=== PATIENT | female | born 1955 | race Caucasian/White ===

== ENCOUNTER → 2016-07-04 | Outpatient (CLI) | payer BC ==
[~2016-07-04] MED LIST: ALLEGRA 60MG TA60 MG PO; ALREX 5 ML5 ML OP; CALCIUM 600600 MG; CARAFATE 1GM1 G PO; CLARITIN 1010 MG/TAB; DUO-KAPS1 CAP; DYRENIUM 50MG C50 MG; GLUCOSAMINE & C1 CA1; NASONEX SPRAY17 GM NS; NEXIUM 40MG40 MG PO; PREDNISONE10 MG PO; PRILOSEC10 MG; RESTASIS0.05% OP; XALATAN EYE DROPS OD; ZADITOR 5 ML5 ML OP
== END ==
LOC: MC.RAD 07:58
DX: Z12.31 Encounter for screening mammogram for malignant neoplasm of breast (principal)

== ENCOUNTER → 2017-08-17 | Outpatient (CLI) | payer BC | LOC: MC.RAD 07:27 | DX: Z12.31 Encounter for screening mammogram for malignant neoplasm of breast (principal) ==

== ENCOUNTER → 2018-08-18 | Outpatient (CLI) | payer BC | LOC: MC.RAD 07:28 | DX: Z12.31 Encounter for screening mammogram for malignant neoplasm of breast (principal) ==

== ENCOUNTER → 2019-08-23 | Outpatient (CLI) | payer BC | LOC: MC.RAD 10:12 | DX: Z12.31 Encounter for screening mammogram for malignant neoplasm of breast (principal) ==

== ENCOUNTER 2019-10-31 15:08 | Outpatient (CLI) | payer BC ==
[~2019-10-31] VITALS: Ht 160 cm; Wt 56.1 kg
[2019-10-31] MEDS ORDERED: AMPHOJEL SUSPENS1 ML PO (15:37)
[2019-10-31] MEDS ORDERED: MILK OF MA400 MG/52 (15:38)
[2019-10-31] MEDS ORDERED: SIMETHICONE80 MG PO (15:38)
[2019-10-31] MEDS ORDERED: ZADITOR 5 ML5 ML OP (15:43)
[2019-10-31] MEDS ORDERED: OSCAL 500 TAB500 MG PO (15:44)
[2019-10-31] MEDS ORDERED: VITAMIN K0.1 MG (15:44)
[2019-10-31] MEDS ORDERED: GLUCOSAMINE & C1 TAB PO (15:45)
[2019-10-31 15:47] VITALS: BP 124/50; PULSE 68; TEMP 98.6
== END 2019-10-31 17:00 | disposition home or self-care (01) ==
LOC: EUO 15:08
DX: M81.0 Age-related osteoporosis without current pathological fracture (principal)
CPT/HCPCS: J3489

== ENCOUNTER 2020-11-01 14:51 | Outpatient (CLI) | payer BC ==
[~2020-11-01] VITALS: Ht 160 cm; Wt 56.0 kg
[~2020-11-01 14:51] MED LIST changes: +AMPHOJEL SUSPENS1 ML PO; +GLUCOSAMINE & C1 TAB PO; +MILK OF MA400 MG/52; +OSCAL 500 TAB500 MG PO; +SIMETHICONE80 MG PO; +VITAMIN K0.1 MG
[2020-11-01] MEDS ORDERED: GAVISCON 80 MG-1 CT1 PO (15:17)
[2020-11-01] MEDS ORDERED: TYLENOL 325MG325 MG PO (15:18)
[2020-11-01] MEDS ORDERED: NASAL MOISTURIZ45 ML NS (15:18)
[2020-11-01 15:44] VITALS: BP 118/51; PULSE 61; TEMP 98.8
== END 2020-11-05 16:02 ==
LOC: EUO 14:51
DX: M81.0 Age-related osteoporosis without current pathological fracture (principal)
CPT/HCPCS: J3489

== ENCOUNTER → 2021-08-02 | Outpatient (CLI) | payer BC ==
[~2021-08-02] MED LIST changes: +GAVISCON 80 MG-1 CT1 PO; +NASAL MOISTURIZ45 ML NS; +TYLENOL 325MG325 MG PO
== END ==
LOC: MC.RAD 14:04
DX: Z12.31 Encounter for screening mammogram for malignant neoplasm of breast (principal)

== ENCOUNTER 2021-11-08 15:03 | Outpatient (CLI) | payer BC ==
[~2021-11-08] VITALS: Ht 160 cm; Wt 57.3 kg
[~2021-11-08 15:03] MED LIST changes: +NEXIUM 24HR20 M1 PO; -NEXIUM 40MG40 MG PO
[2021-11-08 15:26] VITALS: BP 119/51; PULSE 69; TEMP 98.6
[2021-11-08] MEDS ORDERED: MYLANTA 150 ML150 M1 PO (15:49)
[2021-11-08] MEDS ORDERED: CALCIUM-500 5001 CTB PO (15:50)
[2021-11-08] MEDS ORDERED: FLONASEALLERGY NS (15:51)
--- NOTE | 2021-11-08 16:14 | NUR ---
Pt escorted out to elevator following infusion. No complaints at time of discharge.
== END 2021-11-08 16:15 | disposition home or self-care (01) ==
LOC: EUO 15:03
DX: M81.0 Age-related osteoporosis without current pathological fracture (principal)
CPT/HCPCS: J3489

== ENCOUNTER → 2023-09-22 | Outpatient (CLI) | payer BC ==
[~2023-09-22] MED LIST changes: +CALCIUM-500 5001 CTB PO; +FLONASEALLERGY NS; +MYLANTA 150 ML150 M1 PO
== END ==
LOC: MC.RAD 07:46
DX: Z12.31 Encounter for screening mammogram for malignant neoplasm of breast (principal); R92.0 Mammographic microcalcification found on diagnostic imaging of breast